=== PATIENT | male | born 1975 | race Two or more races ===

== ENCOUNTER 2021-09-16 20:25 | Emergency (ER) | payer MEDICAID, OTHER ==
[2021-09-17] MEDS ORDERED: LIDOCAINE 1% HCL (LOCAL ANESTH.) INJ 20ML MDV IJ ONE
[2021-09-17] MEDS ORDERED: AMOX-277 PO (01:01)
[2021-09-17 01:11] VITALS: BP 192/128
== END 2021-09-17 01:33 | disposition home or self-care (01) ==
LOC: ER 20:25
DX: S01.81XA Laceration without foreign body of other part of head, initial encounter (principal); S01.85XA Open bite of other part of head, initial encounter; Z79.2 Long term (current) use of antibiotics; W54.0XXA Bitten by dog, initial encounter; Y93.89 Activity, other specified; Y92.89 Other specified places as the place of occurrence of the external cause; Y99.8 Other external cause status
CPT/HCPCS: 12011

== ENCOUNTER 2022-05-13 19:10 | Emergency (ER) | payer MEDICAID ==
[~2022-05-13] VITALS: Ht 165.1 cm; Wt 63.0 kg
[~2022-05-13 19:10] MED LIST: AMOX-277 PO
[2022-05-13] MEDS ORDERED: cloNIDine HCL 0.1 MG TAB PO ONE (19:45)
[2022-05-13 20:05] LABS: Basophils # (auto) 0 10 ^3/uL (0-0.2); Basophils % (auto) 0.6 % (0.0-2.0); Eosinophils # (auto) 0 10 ^3/uL (0-0.8); Eosinophils % (auto) 0.7 % (0.0-7.0); Hematocrit 48.6 % (41.0-53.0); Lymphocytes # (auto) 1.2 10 ^3/uL (0.4-5.4); Lymphocytes % (auto) 15.7 % (10.0-50.0); Mean Corpuscular Hemoglobin 31.2 pg (28.0-32.0); Mean Corpuscular Volume 89.1 fL (80.0-100.0); Monocytes # (auto) 1.1 10 ^3/uL (0-1.3); Monocytes % (auto) 14.8 % (0.0-12.0); Neutrophils % (auto) 68.2 % (37.0-80.0); Nucleated Red Blood Cells % 0.2 %; Red Blood Cells 5.45 10^6/uL (4.5-5.90); Red Cell Distribution Width 13.3 % (11.8-14.3); White Blood Cell 7.4 10^3/uL (4.4-10.8)
[2022-05-13 20:48] LABS: Urine Bacteria NONE SEEN /hpf (None Seen); Urine Blood Negative /uL (Negative); Urine Specific Gravity 1.007 (1.001-1.035); Urine WBC <1 /hpf (0 - 3)
[2022-05-13 20:52] LABS: Albumin 3.6 g/dL (3.4-5.0); BUN/Creatinine Ratio 14.1; Calcium 9.1 mg/dL (8.5-10.1); Potassium 3.9 mmol/L (3.5-5.1)
[2022-05-13 20:55] LABS: Bilirubin, Total 0.8 mg/dL (0.2-1.0); Total Protein 8.4 g/dL (6.4-8.2)
[2022-05-13] MEDS ORDERED: LISINOPRIL 20 MG TAB PO ONE (22:00)
[2022-05-13] MEDS ORDERED: LABETALOL HCL 200 MG TAB PO ONE (23:30)
[2022-05-14] MEDS ORDERED: ONDANSETRON ODT 4 MG TAB PO ONE (00:30)
[2022-05-14] MEDS ORDERED: LISI20TA28 PO (00:39)
[2022-05-14] MEDS ORDERED: HYDR25TA5 PO (00:39)
[2022-05-14 00:48] VITALS: BP 148/107
== END 2022-05-14 00:50 | disposition home or self-care (01) ==
LOC: ER 19:10
DX: I16.0 Hypertensive urgency (principal); I10 Essential (primary) hypertension; Z88.1 Allergy status to other antibiotic agents; Z88.6 Allergy status to analgesic agent
CPT/HCPCS: 36415; 71046; 80053; 81001; 84484; 85025; 93005; 99285; J7030; Q0162

== ENCOUNTER 2022-05-14 17:33 | Inpatient (IN) | payer MEDICAID ==
[~2022-05-14] VITALS: Ht 165.1 cm; Wt 65.0 kg
[~2022-05-14 17:33] MED LIST changes: +HYDR25TA5 PO; +LISI20TA28 PO
[2022-05-14] MEDS ORDERED: HCTZ 25 MG TAB PO ONE (17:45)
[2022-05-14] MEDS ORDERED: LISINOPRIL 20 MG TAB PO ONE (17:45)
[2022-05-14] MEDS ORDERED: hydrALAZINE HCL 20 MG/ML VL IV ONE (19:15)
[2022-05-14 20:17] LABS: Basophils # (auto) 0 10 ^3/uL (0-0.2); Basophils % (auto) 0.6 % (0.0-2.0); Eosinophils # (auto) 0.2 10 ^3/uL (0-0.8); Eosinophils % (auto) 2.6 % (0.0-7.0); Hematocrit 47.7 % (41.0-53.0); Hemoglobin 16.5 g/dL (13.5-17.5); Lymphocytes # (auto) 1.3 10 ^3/uL (0.4-5.4); Lymphocytes % (auto) 17.1 % (10.0-50.0); Mean Corpuscular Hemoglobin 30.7 pg (28.0-32.0); Mean Corpuscular Hgb Conc. 34.6 g/dL (32.0-36.0); Mean Corpuscular Volume 88.9 fL (80.0-100.0); Monocytes # (auto) 1.1 10 ^3/uL (0-1.3); Monocytes % (auto) 14.1 % (0.0-12.0); Neutrophils # (auto) 5.1 10 ^3/uL (1.6-8.6); Neutrophils % (auto) 65.6 % (37.0-80.0); Nucleated Red Blood Cells % 0.7 %; Red Blood Cells 5.37 10^6/uL (4.5-5.90); Red Cell Distribution Width 13.1 % (11.8-14.3); White Blood Cell 7.7 10^3/uL (4.4-10.8)
[2022-05-14 20:49] LABS: Albumin 3.7 g/dL (3.4-5.0); Potassium 4.1 mmol/L (3.5-5.1)
[2022-05-14 20:52] LABS: BUN/Creatinine Ratio 23.2; Bilirubin, Total 0.8 mg/dL (0.2-1.0); Total Protein 7.6 g/dL (6.4-8.2)
[2022-05-14] MEDS ORDERED: HYDROcodone-ACET 5/325MG TAB PO PRN (21:15)
[2022-05-14] MEDS ORDERED: ONDANSETRON HCL 4 MG/2 ML VIAL IV PRN (21:15)
[2022-05-14] MEDS ORDERED: SODIUM CHLORIDE 0.9% 1,000 ML IV SCH (21:15)
[2022-05-14] MEDS ORDERED: hydrALAZINE HCL 20 MG/ML VL IV PRN (21:15)
[2022-05-14] MEDS ORDERED: DOCUSATE SOD 100 MG CAP PO PRN (21:15)
[2022-05-14] MEDS ORDERED: ACETAMINOPHEN 325 MG TAB PO PRN (21:15)
[2022-05-14] MEDS ORDERED: TEMAZEPAM 15 MG CAP PO PRN (21:15)
[2022-05-14] MEDS ORDERED: IBUPROFEN 600 MG TAB PO PRN (21:30)
[2022-05-14] MEDS: METOPROLOL TARTRATE 50 MG TAB PO SCH (22:26)
[2022-05-14] MEDS: hydrALAZINE HCL 25 MG TAB PO SCH (22:27)
[2022-05-14 22:39] LABS: Urine Bacteria NONE SEEN /hpf (None Seen); Urine Blood Negative /uL (Negative); Urine Specific Gravity 1.014 (1.001-1.035); Urine WBC 1 /hpf (0 - 3)
[2022-05-14 22:52] LABS: Alcohol, Urine < 3.0 mg/dL (0-10); Amphetamine Screen, Urine NEGATIVE (NEGATIVE); Barbiturate Scree,Urine NEGATIVE (NEGATIVE); Benzodiazephine Screen, Urine NEGATIVE (NEGATIVE); Cannabinoid Screen, Urine POSITIVE (NEGATIVE); Cocaine Screen, Urine NEGATIVE (NEGATIVE)
[2022-05-14 23:01] LABS: Opiate Scree,Urine NEGATIVE (NEGATIVE); Phencyclidine Screen, Urine NEGATIVE (NEGATIVE)
[2022-05-15] MEDS ORDERED: MORPHINE SULFATE INJ 2 MG/ml SYRG IV PRN
[2022-05-15] MEDS ORDERED: NITROGLYCERIN 0.4 MG SL TAB SL PRN
[2022-05-15] MEDS: hydrALAZINE HCL 25 MG TAB PO SCH (06:07)
[2022-05-15 06:51] LABS: Basophils # (auto) 0.1 10 ^3/uL (0-0.2); Basophils % (auto) 0.8 % (0.0-2.0); Eosinophils # (auto) 0.2 10 ^3/uL (0-0.8); Eosinophils % (auto) 3.1 % (0.0-7.0); Hematocrit 45.2 % (41.0-53.0); Hemoglobin 15.7 g/dL (13.5-17.5); Lymphocytes # (auto) 1.4 10 ^3/uL (0.4-5.4); Lymphocytes % (auto) 21.4 % (10.0-50.0); Mean Corpuscular Hgb Conc. 34.7 g/dL (32.0-36.0); Mean Corpuscular Volume 89.5 fL (80.0-100.0); Monocytes # (auto) 1.1 10 ^3/uL (0-1.3); Monocytes % (auto) 16.4 % (0.0-12.0); Neutrophils # (auto) 3.9 10 ^3/uL (1.6-8.6); Neutrophils % (auto) 58.3 % (37.0-80.0); Nucleated Red Blood Cells % 0.1 %; Red Blood Cells 5.06 10^6/uL (4.5-5.90); Red Cell Distribution Width 13.2 % (11.8-14.3); White Blood Cell 6.7 10^3/uL (4.4-10.8)
[2022-05-15 07:10] LABS: Albumin 3.3 g/dL (3.4-5.0); BUN/Creatinine Ratio 18.6; Potassium 3.9 mmol/L (3.5-5.1)
[2022-05-15 07:26] LABS: Bilirubin, Total 0.9 mg/dL (0.2-1.0)
[2022-05-15] MEDS ORDERED: NIFEdipine ER 30 MG TAB PO SCH (10:00)
[2022-05-15] MEDS ORDERED: ASPirin 81 mg TAB PO SCH (10:00)
[2022-05-15] MEDS ORDERED: HCTZ 25 MG TAB PO SCH (10:00)
[2022-05-15] MEDS ORDERED: LISINOPRIL 20 MG TAB PO SCH (10:00)
[2022-05-15] MEDS ORDERED: amLODIPine BESYLATE 5 MG TAB PO SCH (10:00)
[2022-05-15] MEDS: METOPROLOL TARTRATE 50 MG TAB PO SCH (10:56)
[2022-05-15 13:06] LABS: Hepatitis B Surface Antibody Negative (Negative)
[2022-05-15 13:45] LABS: Hepatitis A Total Antibody Positive (Negative)
[2022-05-15 15:09] LABS: Hepatitis C Antibody Positive (Negative)
[2022-05-15 16:00] VITALS: BP 128/88
== END 2022-05-15 17:08 | disposition home or self-care (01) | DRG 199 ==
LOC: ER 17:33 → UNDOADMIN 23:52 → TELE 23:52
PROVIDERS: ADMIT Nurse Practitioner Family; ATTEND Internal Medicine Geriatric Medicine
DX: I16.0 Hypertensive urgency (principal); B19.20 Unspecified viral hepatitis C without hepatic coma; Z20.822 Contact with and (suspected) exposure to COVID-19; R53.1 Weakness; R79.89 Other specified abnormal findings of blood chemistry; Z91.199 Patient's noncompliance with other medical treatment and regimen due to unspecified reason
CPT/HCPCS: 36415; 70450; 71045; 76705; 80053; 80307; 81001; 84484; 85025; 86704; 86706; 86708; 86803; 87340; 87426; 93306; 96361; 96374; 96375; G0378; J2405

== ENCOUNTER → 2022-07-19 | Outpatient (CLI) | payer MEDICAID ==
[2022-07-19 10:20] LABS: Basophils # (auto) 0.1 10 ^3/uL (0-0.2); Basophils % (auto) 1.2 % (0.0-2.0); Eosinophils # (auto) 0.3 10 ^3/uL (0-0.8); Eosinophils % (auto) 4.4 % (0.0-7.0); Hematocrit 43.4 % (41.0-53.0); Hemoglobin 14.8 g/dL (13.5-17.5); Lymphocytes # (auto) 1.9 10 ^3/uL (0.4-5.4); Lymphocytes % (auto) 29.3 % (10.0-50.0); Mean Corpuscular Hemoglobin 31.2 pg (28.0-32.0); Mean Corpuscular Hgb Conc. 34.1 g/dL (32.0-36.0); Mean Corpuscular Volume 91.3 fL (80.0-100.0); Monocytes # (auto) 0.6 10 ^3/uL (0-1.3); Monocytes % (auto) 9.1 % (0.0-12.0); Neutrophils # (auto) 3.6 10 ^3/uL (1.6-8.6); Nucleated Red Blood Cells % 0.1 %; Red Blood Cells 4.75 10^6/uL (4.5-5.90); Red Cell Distribution Width 14.1 % (11.8-14.3); White Blood Cell 6.4 10^3/uL (4.4-10.8)
[2022-07-19 10:35] LABS: INR 1.07 (0.9-1.15)
[2022-07-19 10:54] LABS: Albumin 3.7 g/dL (3.4-5.0); Calcium 8.8 mg/dL (8.5-10.1); Potassium 4.2 mmol/L (3.5-5.1)
[2022-07-19 10:57] LABS: BUN/Creatinine Ratio 21.5 (10.0-20.0); Bilirubin, Total 0.8 mg/dL (0.2-1.0); Total Protein 7.3 g/dL (6.4-8.2)
== END | disposition home or self-care (01) ==
LOC: LAB 09:52
PROVIDERS: ATTEND Internal Medicine Gastroenterology
DX: B18.2 Chronic viral hepatitis C (principal); R94.5 Abnormal results of liver function studies
CPT/HCPCS: 36415; 80053; 82105; 84443; 85025; 85610

== ENCOUNTER 2024-03-19 14:36 | Emergency (ER) | payer BC, MEDICAID ==
[~2024-03-19] VITALS: Ht 165.1 cm; Wt 68.7 kg
[~2024-03-19 14:36] MED LIST changes: -AMOX-277 PO; +AMOX875T4 PO; -LISI20TA28 PO; +LISI20TA56 PO
[2024-03-19 15:05] VITALS: TEMP 98.6
--- NOTE | 2024-03-19 15:17 | ECG ---
[facility] Test Date: 2024-03-19 Test Time: 15:02:46 Pat Name: SRIKANTH PETTY Department: ER Room: Gender: Putty Glazer: JOHANNA STUDENT : 1975 Requested By: KRISTINA MIKE Order Number: [id number] Reading MD: Measurements Intervals [place] Rate: 80 P: 81 MA: 135 QRS: 88 QRSD: 86 T: 62 QT: 414 QTc: 478 Interpretive Statements Sinus rhythm Probable left atrial enlargement Borderline prolonged QT interval Baseline wander in lead(s) V1 Please click the below link to view image of tracing.
[2024-03-19 15:28] VITALS: PULSE 87; RESP 16; O2SAT 98
[2024-03-19] MEDS: cloNIDine HCL 0.1 MG TAB PO ONE (15:32)
--- NOTE | 2024-03-19 15:40 | ED.PDOC ---
HPI Comments 48 Y M with PMHX of HTN presents to the ED with CC of high blood pressure. Patient states, that he was at his PCP office for a routine check up when he was relayed to follow up with the ED for a further work up regarding his hypertension. Patient comments, that he has been having high blood pressure readings [id number]; and is currently not taking any medications to regulate it. Patient denies SOB, chest pain, fever, chills, or N/V/D. Chief Complaint: High Blood Pressure Time Seen by MD: 15:00 Reviewed Notes: Nurses Notes, Medications, Allergies Allergies: Coded Allergies: NO KNOWN ALLERGIES (Unverified , 09/16/21) Home Meds Active Scripts Lisinopril (Lisinopril) 20 Mg Tab, 1 TAB PO DAILY, #30 TAB Prov:NATHAN SERRANO MD 03/19/24 Hctz (Hydrochlorothiazide) 25 Mg Tab, 25 MG PO DAILY for 30 Days, #30 TAB Prov:NATHAN SERRANO MD 03/19/24 Amoxicillin & Pot Clavulanate (Amoxicillin/Potassium Cla) 875 Mg Tab, 1 TAB PO BID for 7 Days, #14 TAB 0 Refills Prov:DIMA SIMPSON 09/17/21 Information Source: Patient Mode of Arrival: Ambulatory Severity: Mild Timing: Hours Duration: Since onset Prehospital treatment: None Onset: At Rest Cardiac Risk Factors: HTN PE Risk Factors: None History of: None Modifying Factors: Nothing Associated Signs and Symptoms: None Past Medical History PAST MEDICAL HISTORY: HTN Surgical History: Denies all surgeries Family History Family History: Reviewed,noncontributory to illness Social History Smoker: Non-Smoker Alcohol: Occasionally Drugs: Other Lives In: Home Constitutional: denies: chills, diaphoresis, fatigue, fever, malaise, sweats, weakness, others EENTM: denies: blurred vision, double vision, ear bleeding, ear discharge, ear drainage, ear pain, ear ringing, eye pain, eye redness, hearing loss, mouth p ain, mouth swelling, nasal discharge, nose bleeding, nose congestion, nose pain, photophobia, tearing, throat pain, throat swelling, voice changes, others Respiratory: denies: cough, hemoptysis, orthopnea, SOB at rest, shortness of br eath, SOB with excertion, stridor, wheezing, others Cardiovascular: denies: chest pain, dizzy spells, diaphoresis, Dyspnea on exertion, edema, irregular heart beat, left arm pain, lightheadedness, palpitations, PND, syncope, others Gastrointestinal: denies: abdomen distended, abdominal pain, blood streaked bowels, constipated, diarrhea, dysphagia, difficulty swallowing, hematemesis, melena, nausea, poor appetite, poor fluid intake, rectal bleeding, rectal pain, vomiting, others Genitourinary: denies: burning, dysuria, flank pain, frequency, hematuria, incontinence, penile discharge, penile sore, pain, testicle pain, testicle swelling, urgency, others Neurological: denies: dizziness, fainting, headache, left sided numbness, left sided weakness, numbness, paresthesia, pre-existing deficit, right sided numbness, right sided weakness, seizure, speech problems, tingling, tremors, weakness, others Musculoskeletal: denies: back pain, gout, joint pain, joint swelling, muscle pain, muscle stiffness, neck pain, others Integumetry: denies: bruises, change in color, change in hair/nails, dryness, laceration, lesions, lumps, rash, wounds, others Allergic/Immunocompromised: denies: Difficulty Healing, Frequent Infections, Hives, Itching, others Hematologic/Lymphatic: denies: anemia, blood clots, easy bleeding, easy bruising, swollen glands, others Endocrine: denies: excessive hunger, excessive sweating, excessive thirst, excessive urination, flushing, intolerance to cold, intolerance to heat, unexplained weight gain, unexplained weight loss, others Psychiatric: denies: anxiety, bipolar disorder, depression, hopeless, panic disorder, schizophrenia, sleepless, suicidal, others All Other Systems: Reviewed and Negative Physical Exam General Appearance: No Apparent Distress HEENT: Normal ENT Inspection, Pharynx Normal, TMs Normal Neck: Full Range of Motion, Non-Tender, Normal, Normal Inspection Respiratory: Chest Non-Tender, Lungs Clear, No Accessory Muscle Use, No Respiratory Distress, Normal Breath Sounds Cardiovascular: No Edema, No JVD, No Murmur, No Gallop, Normal Peripheral Pulses, Regular Rate/Rhythm Breast Exam: Deferred Gastrointestinal: No Organomegaly, Non Tender, No Pulsatile Mass, Normal Bowel Sounds, Soft Genitalia: Deferred Pelvic: Deferred Rectal: Deferred Extremities: No calf tenderness, Normal capillary refill, Normal inspection, Normal range of motion, Non-tender, No pedal edema Musculoskeletal : Apperance: Normal Neurologic: Alert, poultry tender II-XII nml as Tested, No Motor Deficits, Normal Affect, Normal Mood, No Sensory Deficits Cerebellar Function: Normal Reflexes: Normal Skin: Dry, Normal Color, Warm Lymphatic: No Adenopathy Was a procedure done? Was a procedure done?: No CP Differential Dx Differential Diagnosis: Angina Differential Diagnosis: HTN Essential, HTN Accelerated Differential Diagnosis: Angina, Costochondritis X-Ray, Labs, Meds, VS Vital Signs Date Time Temp Pulse Resp B/P (MAP) Pulse Ox O2 Delivery O2 Flow Rate FiO2 03/19/24 16:28 143/104 03/19/24 15:32 211/154 03/19/24 15:28 87 16 98 Room Air* 0 21 03/19/24 15:05 98.6 96 18 164/104 (124) 98.6 03/19/24 15:02 80 03/19/24 14:58 98.6 96 18 186/115 (138) 86 Current Medications Medications (Trade) Dose Ordered Sig/Gerardo Route Start Time Stop Time Status Last Admin Clonidine HCl (Catapres Tablet) 0.2 mg ONCE ONCE PO 03/19/24 15:15 03/19/24 15:16 DC 03/19/24 15:32 Patient was being discharged The patient will follow up with the primary care doctor The patient will return to the emergency department's condition worsens. The patient was given clonidine 0.2 mg by mouth for the elevated blood pressure We are recently the patient's medications as well We did explain to the patient that he needs to follow up with his doctor for possible adjustment of his medications. Time of 1ST Reevaluation: 15:30 Reevaluation 1ST: Unchanged Time of 2ND Reevaluation: 17:15 Reevaluation 2ND: Improved Patient Education/Counseling: Diagnosis, Treatment, Prognosis, Need For Follow Up Family Education/Counseling: No Family Present Departure 1 Departure Time of Disposition: 17:15 Impression: Primary Impression: Hypertensive urgency Disposition: 01 HOME / SELF CARE / HOMELESS Condition: Fair e-Prescriptions Lisinopril (Lisinopril) 20 Mg Tab 1 TAB PO DAILY, #30 TAB Prov: NATHAN SERRANO MD 03/19/24 Hctz (Hydrochlorothiazide) 25 Mg Tab 25 MG PO DAILY for 30 Days, #30 TAB Prov: NATHAN SERRANO MD 03/19/24 Discharged With: Self Critical Care Note Critical Care Time?: No Stability Stability form required: No Heart Score Heart Score: Heart Score Response (Comments) Value History N/A 0 EKG N/A 0 Age N/A 0 Risk Factors N/A 0 Troponin N/A 0 Total 0 I personally scribed for NATHAN SERRANO MD ([email or web address]) on 03/19/24 at 15:40. Electronically submitted by Sarah Borden [email or web address]). NATHAN SERRANO MD Mar 19, 2024 15:40
[2024-03-19] MEDS ORDERED: HYDR25TA5 PO (17:18)
[2024-03-19] MEDS ORDERED: LISI20TA56 PO (17:18)
[2024-03-19 17:19] VITALS: BP 138/98; PULSE 85; RESP 19; O2SAT 99
== END 2024-03-19 17:21 | disposition home or self-care (01) ==
LOC: ER 14:39
DX: I16.0 Hypertensive urgency (principal); Z79.899 Other long term (current) drug therapy
CPT/HCPCS: 93005